=== PATIENT | female | born 1995 | race African-American/Black ===

== ENCOUNTER 2022-03-19 11:05 | Emergency (ER) | payer MEDICAID ==
[~2022-03-19] VITALS: Ht 165.1 cm; Wt 65.8 kg
--- NOTE | 2022-03-19 11:10 | NUR ---
MD at bedside, medical screenng exam in progress.
[2022-03-19] MEDS ORDERED: PROCHLORPERAZINE EDISYLATE 10 MG/2 ML VIAL IV ONE (11:45)
[2022-03-19] MEDS ORDERED: IV NORMAL SALINE 1000 ML BAG IV ONE (11:45)
[2022-03-19] MEDS ORDERED: KETOROLAC TROMETHAMINE 30 MG INJ IVP ONE (11:45)
[2022-03-19] MEDS ORDERED: PROCHLORPERAZINE EDISYLATE 10 MG/2 ML VIAL ONE (12:02)
[2022-03-19] MEDS ORDERED: KETOROLAC TROMETHAMINE 30 MG INJ ONE (12:03)
[2022-03-19 12:07] LABS: MEAN CORPUSCULAR HEMOGLOBIN 31.1 uug (24.7-32.8); MEAN CORPUSCULAR VOLUME 91.9 fL (75.5-95.3); PLATELET COUNT (AUTO) 259 K/uL (179-408)
[2022-03-19 12:13] LABS: CREATININE 0.7 mg/dL (0.6-1.3); POTASSIUM 3.7 mmol/L (3.5-5.1)
[2022-03-19] MEDS ORDERED: ONDA4TAB11 PO (13:27)
[2022-03-19] MEDS ORDERED: BUTA1CAP46 PO (13:27)
--- NOTE | 2022-03-19 13:56 | NUR ---
Patient discharged to home in stable condition. Written and verbal after care instructions given to pt and mother. Patient verbalizes understanding of instructions. Stressed follow up or return to ER for worsening s/s.
[2022-03-19 13:57] VITALS: BP 125/70
== END 2022-03-19 13:57 | disposition home or self-care (01) ==
LOC: ER 11:05
DX: G43.909 Migraine, unspecified, not intractable, without status migrainosus (principal); Z96.89 Presence of other specified functional implants
CPT/HCPCS: 36415; 80048; 84702; 85025; 96361; 96374; 96375; 99284; J0780; J1885; J7040; A4663